=== PATIENT | female | born 1990 | race Caucasian/White ===

== ENCOUNTER 2018-03-15 11:12 | Emergency (ER) | payer SELFPAY ==
[2018-03-15] VITALS (8 sets, daily range): BP systolic 85–140; BP diastolic 44–80; PULSE 48–69; RESP 15–18; TEMP 96.4; O2SAT 98–100
[~2018-03-15] VITALS: Ht 167.6 cm; Wt 82.0 kg
--- NOTE | 2018-03-15 11:53 | PD ---
HPI Chief Complaint: GI Complaint Time Seen by Provider: 11:51 Travel History International Travel<30 days: No Contact w/Intl Traveler<30days: No Traveled to known affect area: No History of Present Illness HPI This 27-year-old female says she woke up this morning with abdominal pain, nausea and vomiting. She says the abdominal pain is quite severe. She has vomited repeatedly. She says she has had 5 or 6 loose bowel movements. He has had some stomach issues in the past but has never had symptoms like this. She does not think she is . Her last period ended 2 days ago. She has no history of abdominal surgery. She had an ultrasound of her abdomen recently. She has never had an endoscopy. She says the pain she is having is fairly diffuse and constant. PFSH Past Medical History Medical History: Denies Significant Hx Influenza Vaccination: Yes ?: Not LMP: NOW Social History Alcohol Use: No Tobacco Use: No Substance Use: No Allergies-Medications (Allergen,Severity, Reaction): Coded Allergies: No Known Allergies (Unverified , 03/15/18) Reported Meds & Prescriptions Reported Meds & Active Scripts Active No Active Prescriptions or Reported Medications Review of Systems Except as stated in HPI: all other systems reviewed are Neg General / Constitutional: No: Fever, Chills Eyes: No: Diploplia HENT: No: Lightheadedness Gastrointestinal: Positive: Nausea, Vomiting, Diarrhea, Abdominal Pain Genitourinary: No: Urgency, Frequency Musculoskeletal: No: Myalgias Neurologic: No: Weakness Endocrine: No: Heat Intolerance Hematologic/Lymphatic: No: Easy Bruising Physical Exam Narrative GENERAL: Well-developed female. She is vomiting violently SKIN: Focused skin assessment warm/dry. HEAD: Atraumatic. Normocephalic. EYES: Pupils equal and round. No scleral icterus. No injection or drainage. ENT: No nasal bleeding or discharge. Mucous membranes pink and moist. NECK: Trachea midline. No JVD. CARDIOVASCULAR: Regular rate and rhythm. No murmur appreciated. RESPIRATORY: No accessory muscle use. Clear to auscultation. Breath sounds equal bilaterally. GASTROINTESTINAL: Abdomen soft, there is fairly diffuse tenderness on arrival nondistended. Hepatic and splenic margins not palpable. MUSCULOSKELETAL: No obvious deformities. No clubbing. No cyanosis. No edema. NEUROLOGICAL: Awake and alert. No obvious cranial nerve deficits. Motor grossly within normal limits. Normal speech. PSYCHIATRIC: Appropriate mood and affect; insight and judgment normal. Data Data Last Documented VS Vital Signs Date Time Temp Pulse Resp B/P (MAP) Pulse Ox O2 Delivery O2 Flow Rate FiO2 03/15/18 14:43 58 16 108/58 (75) 98 Room Air 03/15/18 11:15 96.4 Orders Orders Complete Blood Count With Diff (03/15/18 11:51) Comprehensive Metabolic Panel (03/15/18 11:51) Lipase (03/15/18 11:51) Sodium Chlor 0.9% 1000 Ml Inj (Ns 1000 M (03/15/18 12:00) Sodium Chlor 0.9% 1000 Ml Inj (Ns 1000 M (03/15/18 12:00) Ondansetron Inj (Zofran Inj) (03/15/18 12:00) Prochlorperazine Inj (Compazine Inj) (03/15/18 12:30) Lorazepam Inj (Ativan Inj) (03/15/18 12:30) Hydromorphone Pf Inj (Dilaudid Pf Inj) (03/15/18 13:00) Ct Abd/Pel W Iv Contrast(Rout) (03/15/18 12:53) Bhcg Screen Qualitative (03/15/18 12:53) Sodium Chlor 0.9% 1000 Ml Inj (Ns 1000 M (03/15/18 13:15) Potassium Chlor 10 Meq Premix (Kcl 10 Me (03/15/18 13:15) Hydromorphone Pf Inj (Dilaudid Pf Inj) (03/15/18 14:00) Urinalysis - C+S If Indicated (03/15/18 14:10) Labs Laboratory Tests Test 03/15/18 12:09 White Blood Count 10.3 TH/MM3 Red Blood Count 4.94 MIL/MM3 Hemoglobin 15.2 GM/DL Hematocrit 45.0 % Mean Corpuscular Volume 91.0 FL Mean Corpuscular Hemoglobin 30.8 PG Mean Corpuscular Hemoglobin Concent 33.8 % Red Cell Distribution Width 13.0 % Platelet Count 245 TH/MM3 Mean Platelet Volume 8.1 FL Neutrophils (%) (Auto) 79.9 % Lymphocytes (%) (Auto) 13.1 % Monocytes (%) (Auto) 5.6 % Eosinophils (%) (Auto) 0.4 % Basophils (%) (Auto) 1.0 % Neutrophils # (Auto) 8.3 TH/MM3 Lymphocytes # (Auto) 1.3 TH/MM3 Monocytes # (Auto) 0.6 TH/MM3 Eosinophils # (Auto) 0.0 TH/MM3 Basophils # (Auto) 0.1 TH/MM3 CBC Comment DIFF FINAL Differential Comment Blood Urea Nitrogen 9 MG/DL Creatinine 0.73 MG/DL Random Glucose 164 MG/DL Total Protein 8.0 GM/DL Albumin 4.3 GM/DL Calcium Level 9.2 MG/DL Alkaline Phosphatase 68 U/L Aspartate Amino Transf (AST/SGOT) 22 U/L Alanine Aminotransferase (ALT/SGPT) 29 U/L Total Bilirubin 0.4 MG/DL Sodium Level 142 MEQ/L Potassium Level 3.3 MEQ/L Chloride Level 109 MEQ/L Carbon Dioxide Level 20.8 MEQ/L Anion Gap 12 MEQ/L Estimat Glomerular Filtration Rate 96 ML/MIN Lipase 167 U/L Beta HCG, Qualitative LESS THAN 1 MIU/ML MDM Medical Decision Making Medical Screen Exam Complete: Yes Emergency Medical Condition: Yes Medical Record Reviewed: Yes Differential Diagnosis Differential includes gastroenteritis, bowel obstruction, perforation Narrative Course IV fluids were started. The patient was given Zofran initially. There is no response and she continued to have her violent vomiting. She was then given Compazine and some Ativan with this the vomiting seems to be subsiding. She is still complaining of significant pain so I have ordered a CT of the abdomen and pelvis. test is negative Scripts No Active Prescriptions or Reported Meds Casey Bernstein MD Mar 15, 2018 11:53
[2018-03-15] MEDS ORDERED: SODIUM CHLOR 0.9% 1000 ML INJ 1,000 ML IV ONE ×3 (12:00→13:15)
[2018-03-15] MEDS ORDERED: ONDANSETRON HCL 4 MG/2 ML VIAL IV PUSH ONE ×2 (12:00→15:00)
[2018-03-15 12:29] LABS: AUTOMATED NEUTROPHIL # 8.3 TH/MM3 (1.8-7.7); BASOPHIL # 0.1 TH/MM3 (0-0.2); EOSINOPHIL % 0.4 % (0.0-4.0); HEMOGLOBIN 15.2 GM/DL (11.6-15.3); LYMPH % 13.1 % (9.0-44.0); LYMPHOCYTE # 1.3 TH/MM3 (1.0-4.8); MEAN CORPUSCULAR HEMOGLOBIN 30.8 PG (27.0-34.0); MEAN CORPUSCULAR HGB CONC 33.8 % (32.0-36.0); MEAN PLATELET VOLUME 8.1 FL (7.0-11.0); MONO % 5.6 % (0.0-8.0); MONOCYTE # 0.6 TH/MM3 (0-0.9); NEUT % 79.9 % (16.0-70.0); PLATELET COUNT 245 TH/MM3 (150-450); RED BLOOD COUNT 4.94 MIL/MM3 (4.00-5.30); WHITE BLOOD COUNT 10.3 TH/MM3 (4.0-11.0)
[2018-03-15] MEDS ORDERED: PROCHLORPERAZINE INJ 10 MG/2 ML VIAL IV PUSH ONE (12:30)
[2018-03-15] MEDS ORDERED: LORazepam 2 MG/ML VIAL IV PUSH ONE (12:30)
[2018-03-15 12:53] LABS: CHLORIDE 109 MEQ/L (98-107); SODIUM (NA) 142 MEQ/L (136-145)
[2018-03-15 12:56] LABS: CALCIUM 9.2 MG/DL (8.5-10.1)
[2018-03-15 12:57] LABS: ALBUMIN 4.3 GM/DL (3.4-5.0); BICARBONATE 20.8 MEQ/L (21.0-32.0); BLOOD UREA NITROGEN 9 MG/DL (7-18); GLUCOSE,RANDOM 164 MG/DL (74-106)
[2018-03-15 12:59] LABS: ALT (GPT) 29 U/L (10-53); AST (GOT) 22 U/L (15-37)
[2018-03-15 13:00] LABS: CREATININE 0.73 MG/DL (0.50-1.00); GLOMERULAR FILTRATION RATE 96 ML/MIN (>89)
[2018-03-15] MEDS ORDERED: HYDROmorphone HCL PF 0.5 MG/0.5 ML SYRINGE IV PUSH ONE (13:00)
[2018-03-15 13:01] LABS: TOTAL BILIRUBIN ADULT 0.4 MG/DL (0.2-1.0)
[2018-03-15 13:02] LABS: ALKALINE PHOSPHATASE 68 U/L (45-117)
[2018-03-15] MEDS ORDERED: POTASSIUM CHLOR 10 MEQ PREMIX 100 ML IV ONE (13:15)
[2018-03-15] MEDS ORDERED: HYDROmorphone HCL PF 2 MG/ML VIAL IV PUSH ONE (14:00)
--- NOTE | 2018-03-15 15:03 | PD ---
Physical Exam Date Seen by Provider: Mar 15, 2018 Time Seen by Provider: 15:59 Narrative 27-year-old female came to the emergency room with history of intractable vomiting since 6 this morning. She was seen by the previous ER physician. Please refer to his history and physical for further details. Signout was to follow-up on the CAT scan. Patient was given nausea medication multiple times and some pain medication. She had been complaining of abdominal pain and a CAT scan of the abdomen and pelvis was ordered. Patient was slightly hypokalemic and he had ordered potassium replacement. The CAT scan report is back and has been read by the radiologist is unremarkable. Patient has had these symptoms many times in the past. I went to see her and she appeared comfortable sitting up and talking on the phone keeping her family updated she said. Vital signs were stable. I discussed with her the test results including the CAT scan. I answered all her questions to the best of my ability. I am comfortable discharging her home. She says she is going to go back to her home town in [place] tomorrow. Data Data Last Documented VS Orders Orders Complete Blood Count With Diff (03/15/18 11:51) Comprehensive Metabolic Panel (03/15/18 11:51) Lipase (03/15/18 11:51) Sodium Chlor 0.9% 1000 Ml Inj (Ns 1000 M (03/15/18 12:00) Sodium Chlor 0.9% 1000 Ml Inj (Ns 1000 M (03/15/18 12:00) Ondansetron Inj (Zofran Inj) (03/15/18 12:00) Prochlorperazine Inj (Compazine Inj) (03/15/18 12:30) Lorazepam Inj (Ativan Inj) (03/15/18 12:30) Hydromorphone Pf Inj (Dilaudid Pf Inj) (03/15/18 13:00) Ct Abd/Pel W Iv Contrast(Rout) (03/15/18 12:53) Bhcg Screen Qualitative (03/15/18 12:53) Sodium Chlor 0.9% 1000 Ml Inj (Ns 1000 M (03/15/18 13:15) Potassium Chlor 10 Meq Premix (Kcl 10 Me (03/15/18 13:15) Hydromorphone Pf Inj (Dilaudid Pf Inj) (03/15/18 14:00) Urinalysis - C+S If Indicated (03/15/18 14:10) Ondansetron Inj (Zofran Inj) (03/15/18 15:00) Potassium Chloride Eff (K-Lyte Cl Eff) (03/15/18 15:15) Iohexol 350 Inj (Omnipaque 350 Inj) (03/15/18 15:10) Ed Discharge Order (03/15/18 15:59) Labs Laboratory Tests Test 03/15/18 12:09 03/15/18 15:45 White Blood Count 10.3 TH/MM3 Red Blood Count 4.94 MIL/MM3 Hemoglobin 15.2 GM/DL Hematocrit 45.0 % Mean Corpuscular Volume 91.0 FL Mean Corpuscular Hemoglobin 30.8 PG Mean Corpuscular Hemoglobin Concent 33.8 % Red Cell Distribution Width 13.0 % Platelet Count 245 TH/MM3 Mean Platelet Volume 8.1 FL Neutrophils (%) (Auto) 79.9 % Lymphocytes (%) (Auto) 13.1 % Monocytes (%) (Auto) 5.6 % Eosinophils (%) (Auto) 0.4 % Basophils (%) (Auto) 1.0 % Neutrophils # (Auto) 8.3 TH/MM3 Lymphocytes # (Auto) 1.3 TH/MM3 Monocytes # (Auto) 0.6 TH/MM3 Eosinophils # (Auto) 0.0 TH/MM3 Basophils # (Auto) 0.1 TH/MM3 CBC Comment DIFF FINAL Differential Comment Blood Urea Nitrogen 9 MG/DL Creatinine 0.73 MG/DL Random Glucose 164 MG/DL Total Protein 8.0 GM/DL Albumin 4.3 GM/DL Calcium Level 9.2 MG/DL Alkaline Phosphatase 68 U/L Aspartate Amino Transf (AST/SGOT) 22 U/L Alanine Aminotransferase (ALT/SGPT) 29 U/L Total Bilirubin 0.4 MG/DL Sodium Level 142 MEQ/L Potassium Level 3.3 MEQ/L Chloride Level 109 MEQ/L Carbon Dioxide Level 20.8 MEQ/L Anion Gap 12 MEQ/L Estimat Glomerular Filtration Rate 96 ML/MIN Lipase 167 U/L Beta HCG, Qualitative LESS THAN 1 MIU/ML Urine Color YELLOW Urine Turbidity CLEAR Urine pH 7.5 Urine Specific [place] LESS/EQUAL 1.005 Urine Protein NEG mg/dL Urine Glucose (UA) NEG mg/dL Urine Ketones NEG mg/dL Urine Occult Blood LARGE Urine Nitrite NEG Urine Bilirubin NEG Urine Urobilinogen 0.2 MG/DL Urine Leukocyte Esterase NEG Urine RBC 3-5 /hpf Urine WBC 0-2 /hpf Urine Squamous Epithelial Cells 0-5 /hpf Urine Bacteria NONE /hpf Microscopic Urinalysis Comment CULT NOT INDICATED MDM Supervised Visit with [facility]SIYD: No Diagnosis Primary Impression: Intractable vomiting Qualified Codes: R11.2 - Nausea with vomiting, unspecified Additional Impressions: Abdominal pain Qualified Codes: R10.13 - Epigastric pain Acute gastritis Qualified Codes: K29.00 - Acute gastritis without bleeding Referrals: Primary Care Physician Additional Instruction: Do not drink alcohol. Try to keep yourself hydrated as much as possible. Return to ER if condition worsens any other new concerns. Otherwise follow-up with your primary care. Med/Other Pt SpecificInfo: Prescription(s) given Scripts Ondansetron Odt (Zofran Odt) 4 Mg Tab 4 MG SL Q6HR Y for Nausea/Vomiting, #15 TAB 0 Refills Prov: Reginaldo Barger MD 03/15/18 Omeprazole (Omeprazole) 20 Mg Tab 20 MG PO DAILY, #30 TAB 0 Refills Prov: Reginaldo Barger MD 03/15/18 Disposition: 01 DISCHARGE HOME Condition: Stable Reginaldo Barger MD Mar 15, 2018 15:03
[2018-03-15] MEDS ORDERED: IOHEXOL 350 MG/ML 10 ML VIAL (for RAD DIAG) IVCONTRAST ONE (15:10)
[2018-03-15] MEDS ORDERED: POTASSIUM CHLORIDE 25 MEQ EFFERVESCENT TAB PO ONE (15:15)
--- NOTE | 2018-03-15 15:18 | RADRPT ---
EXAM DATE: 03/15/2018 3:12 PM EDT AGE/SEX: 27 years / Female INDICATIONS: Mid abdominal pain. Nausea and vomiting. CLINICAL DATA: This is the patient's initial encounter. Patient reports that signs and symptoms have been present for 1 day and indicates a pain score of 10/10. MEDICAL/SURGICAL HISTORY: None. None. ORAL CONTRAST: No oral contrast ingested. RADIATION DOSE: 12.94 CTDI (mGy) COMPARISON: No prior exams available for comparison. TECHNIQUE: Multiple contiguous axial images were obtained through the abdomen and pelvis following b olus infusion of 90 ml Omnipaque 350 (iohexol) nonionic water-soluble contrast as a single exam dos e. No oral contrast ingested. Using automated exposure control and adjustment of the mA and/or kV ac cording to patient size, the radiation dose was kept as low as reasonably achievable to obtain optima l diagnostic quality images. FINDINGS: Lower Lungs: The visualized lower lungs are clear. Liver: The liver has a homogeneous density without space-occupying lesion. There is no dilation of th e biliary tree. Spleen: Homogeneous density without enlargement. Pancreas: Unremarkable without mass or calcification. Kidneys: Normal in size and shape. No evidence of mass or hydronephrosis. Adrenal Glands: Unremarkable. Aorta: The aorta and proximal iliac vessels are grossly unremarkable without aneurysmal dilation. Bowel/Mesentery: The bowel loops are grossly unremarkable. The cecum and sigmoid colon have a normal configuration. Abdominal Wall: Intact. Retroperitoneum: No evidence of adenopathy in the retrocrural, para-aortic, or deep pelvic regions. Bladder: Contours are smooth. Reproductive Organs: No abnormal masses or calcifications seen. Tampon is noted in place. Inguinal: The inguinal region is unremarkable without evidence of adenopathy. Bony Structures: Unremarkable. CONCLUSION: Negative CT Abdomen and Pelvis with contrast. Electronically signed by: Fam Linares MD 03/15/2018 3:16 PM EDT
[2018-03-15 16:00] LABS: BILIRUBIN, URINE NEG (NEG); BLOOD, URINE LARGE (NEG); GLUCOSE,URINE NEG (NEG); KETONE, URINE NEG (NEG); NITRITE,URINE NEG (NEG); PH, URINE 7.5 (5.0-8.5); URINE COLOR YELLOW (YELLW/STRAW); URINE LEUKOCYTE ESTERASE NEG (NEG)
[2018-03-15] MEDS ORDERED: OMEP20TA93 PO (16:02)
[2018-03-15] MEDS ORDERED: ZOFR4TAB3 SL (16:02)
[2018-03-15 16:05] LABS: SQUAMOUS EPITHELIAL CELL URINE 0-5 /hpf (0-5); WBC, URINE 0-2 /hpf (0-5)
== END 2018-03-15 16:36 | disposition home or self-care (01) ==
LOC: PHED 11:12
DX: R11.2 Nausea with vomiting, unspecified (principal); R10.13 Epigastric pain; K29.00 Acute gastritis without bleeding; E87.6 Hypokalemia
CPT/HCPCS: 74177; 80053; 81001; 83690; 84703; 85025; 96361; 96365; 96375; 96376; 99284; J0780; J1170; J2060; J2405; J3480; J7030; Q9967